=== PATIENT | male | born 1960 | race Caucasian/White ===

== ENCOUNTER 2020-11-06 16:01 | Emergency (ER) | payer BC ==
--- NOTE | 2020-11-06 16:17 | ERPHSYRPT ---
- History of Present Illness Time Seen by Provider: 11/06/20 16:16 Source: patient Exam Limitations: no limitations Patient Subjective Stated Complaint: PT states "I cut my finger with a nail." Triage Nursing Assessment: PT presented alert and oriented X 3, skin pwd Pt ambualtes with an upright steady gait, able to speak in clear full sentences pt in no apparent respiratory distress. Pt has approx 1 inch laceration noted to ring finger on right hand on the distal pad. Physician History: This is a right-handed 60-year-old male who suffered a laceration to his right ring finger. It occurred prior to arrival. Patients tetanus status is up-to-date. Timing/Duration: today Quality: painful Severity: mild Location: hands (Right ring finger) Possible Causes: other (Accidental laceration) Associated Symptoms: denies symptoms Allergies/Adverse Reactions: No Known Drug Allergies Allergy (Verified 11/06/20 16:14) Home Medications: Olmesartan Medoxomil [Benicar] 20 mg PO DAILY 11/06/20 [History] Hx Tetanus, Diphtheria Vaccination/Date Given: Yes Hx Influenza Vaccination/Date Given: No Hx Pneumococcal Vaccination/Date Given: No Immunizations Up to Date: Yes Travel Risk - International Travel Have you traveled outside of the country in past 3 weeks: No - Coronavirus Screening Are you exhibiting any of the following symptoms?: No Close contact with a COVID-19 positive Pt in past 14-21 Days: No - Review of Systems Constitutional: No Symptoms Eyes: No Symptoms Ears, Nose, & Throat: No Symptoms Respiratory: No Symptoms Cardiac: No Symptoms Abdominal/Gastrointestinal: No Symptoms Genitourinary Symptoms: No Symptoms Musculoskeletal: No Symptoms Skin: Other (Laceration right ring finger) Neurological: No Symptoms Psychological: No Symptoms Endocrine: No Symptoms Hematologic/Lymphatic: No Symptoms Immunological/Allergic: No Symptoms All Other Systems: Reviewed and Negative - Past Medical History Pertinent Past Medical History: Yes Cardiac History: Hypertension - Past Surgical History Past Surgical History: Yes Other Surgical History: kidney stone - Social History Smoking Status: Never smoker Exposure to second hand smoke: No Drug Use: none Patient Lives Alone: No - Nursing Vital Signs Nursing Vital Signs: Initial Vital Signs Temperature 98.2 F 11/06/20 16:09 Pulse Rate 91 H 11/06/20 16:09 Respiratory Rate 20 11/06/20 16:09 Blood Pressure 160/86 11/06/20 16:09 O2 Sat by Pulse Oximetry 96 11/06/20 16:09 Pain Scale Pain Intensity 1 - Physical Exam General Appearance: no apparent distress, alert, anxiety Eye Exam: PERRL/EOMI, eyes nml inspection Ears, Nose, Throat Exam: normal ENT inspection, moist mucous membranes Neck Exam: normal inspection, non-tender, supple, full range of motion Respiratory Exam: airway intact, No chest tenderness, No respiratory distress Gastrointestinal/Abdomen Exam: No tenderness Back Exam: normal inspection, normal range of motion, No CVA tenderness, No vertebral tenderness Extremity Exam: normal range of motion, pelvis stable, tenderness (Finger) Neurologic Exam: alert, oriented x 3, cooperative, 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 No foreign body. Neurovascularly intact. Tendon function intact) Skin Exam: laceration Lymphatic Exam: No adenopathy SpO2 Interpretation: normal SpO2: 96 O2 Delivery: Room Air Procedures - Laceration/Wound Repair Right Proximal Volar Finger Wound Location: Right, hand (Right ring finger) Wound Length (cm): 1 Wound's Depth, Shape: superficial, linear Wound Explored: clean (Superficial, in bloodless field, to base, no foreign body noted) Irrigated: Yes Hibiclens Prep: Yes Wound Repaired With: Steri-strips, Dermabond (Benzoin.) Layer Closure?: No Sterile Dressing Applied?: Yes Progress: 11/06/20 17:48 Repair of the laceration with benzoin, Dermabond and half-inch Steri-Strips, the repair site was covered with a pressure dressing. 11/06/20 17:48 - Course Nursing assessment & vital signs reviewed: Yes - Progress Progress: improved, re-examined Counseled pt/family regarding: diagnosis - Departure Departure Disposition: Home Clinical Impression: Finger laceration Condition: Stable Critical Care Time: No Additional Instructions: Keep current pressure dressing in place until the evening of 11/07/2020. May remove the top dressing on the evening of 11/07/2020. Keep the Steri-Strips in place until they fall off.
[2020-11-06 18:08] VITALS: BP 128/82; PULSE 82; O2SAT 98
== END 2020-11-06 18:10 | disposition home or self-care (01) ==
LOC: ED 16:01
DX: S61.214A Laceration without foreign body of right ring finger without damage to nail, initial encounter (principal); I10 Essential (primary) hypertension
CPT/HCPCS: 12001; 99283